=== PATIENT | male | born 1990 | race Caucasian/White ===

== ENCOUNTER 2017-08-19 14:09 | Emergency (ER) | payer SELFPAY ==
[~2017-08-19] VITALS: Ht 185.4 cm; Wt 113.0 kg
[2017-08-19] MEDS ORDERED: ACETAMINOPHEN WITH CODEINE 300/30MG TABLET PO ONE (17:00)
[2017-08-19] MEDS ORDERED: KETOROLAC 60MG/2ML VIAL IM ONE (17:00)
[2017-08-19 17:04] VITALS: BP 118/72
== END 2017-08-19 17:23 | disposition home or self-care (01) ==
LOC: ER 16:25
DX: M54.9 Dorsalgia, unspecified (principal); M79.604 Pain in right leg; M54.2 Cervicalgia; M79.1 Myalgia; F17.290 Nicotine dependence, other tobacco product, uncomplicated
CPT/HCPCS: 96372; 99283; 99406; J1885